=== PATIENT | female | born 1995 | race Two or more races ===

== ENCOUNTER 2023-03-18 12:46 | Emergency (ER) | payer OTHER ==
[~2023-03-18] VITALS: Ht 165.1 cm; Wt 104.3 kg
[2023-03-18] MEDS ORDERED: PEPCID AC10 MG PO (13:32)
[2023-03-18] MEDS ORDERED: PRENA1 TRUE CO1 EACH PO (13:32)
[2023-03-18] MEDS ORDERED: ZOFRAN8 MG PO ×2 (13:33→16:37)
[2023-03-18] MEDS ORDERED: PEPCID AC20 MG PO (16:37)
== END 2023-03-18 17:13 | disposition home or self-care (01) ==
LOC: ER 12:46
DX: Z34.90 Encounter for supervision of normal pregnancy, unspecified, unspecified trimester (principal); Z3A.20 20 weeks gestation of pregnancy; R10.9 Unspecified abdominal pain; R11.10 Vomiting, unspecified; Z91.013 Allergy to seafood

== ENCOUNTER 2023-04-12 10:19 | Outpatient (CLI) | payer OTHER ==
[~2023-04-12 10:19] MED LIST: PEPCID AC10 MG PO; PEPCID AC20 MG PO; PRENA1 TRUE CO1 EACH PO; ZOFRAN8 MG PO
== END 2023-04-12 10:58 | disposition home or self-care (01) ==
LOC: NST 10:19
PROVIDERS: ATTEND Obstetrics & Gynecology
DX: Z34.82 Encounter for supervision of other normal pregnancy, second trimester (principal)

== ENCOUNTER 2023-05-21 00:01 | Outpatient (CLI) | payer OTHER | END 2023-05-21 10:01 | disposition home or self-care (01) | LOC: OBS/DEL 00:01 | PROVIDERS: ATTEND Obstetrics & Gynecology | DX: O26.893 Other specified pregnancy related conditions, third trimester (principal); Z3A.29 29 weeks gestation of pregnancy; K59.09 Other constipation; Z91.013 Allergy to seafood ==

== ENCOUNTER 2023-07-03 11:44 | Outpatient (CLI) | payer OTHER | END 2023-07-03 12:20 | disposition home or self-care (01) | LOC: NST 11:44 | PROVIDERS: ATTEND Obstetrics & Gynecology | DX: Z34.83 Encounter for supervision of other normal pregnancy, third trimester (principal) ==

== ENCOUNTER 2023-07-12 10:56 | Inpatient (IN) | payer OTHER ==
[~2023-07-12] VITALS: Ht 165.1 cm; Wt 111.1 kg
[2023-07-31 10:24] LABS: HEMATOCRIT 36.3 % (36.0-45.00); HEMOGLOBIN 12.3 g/dL (12.0-15.00); MEAN CELL VOLUME 84.2 fL (80.00-100.00); MEAN CORPUSCULAR HEMOGLOBIN 28.6 pg (27.00-32.0); PLATELET COUNT 188 K/uL (150-450); RED BLOOD COUNT 4.32 M/uL (4.00-6.00)
[2023-07-31 10:27] LABS: RED CELL DISTRIBUTION WIDTH 17.1 % (11.5-14.5)
[2023-07-31] MEDS ORDERED: INTEGRA F CAPS1 EAC1 PO (10:30)
[2023-07-31 10:46] LABS: PH,URINE 6.5 (5.0-8.0); URINE APPEARANCE Clear; URINE BILIRRUBIN Negative (NEGATIVE); URINE BLOOD Small; URINE COLOR Yellow; URINE GLUCOSE Negative (NEGATIVE); URINE LEUKOCYTE Moderate; URINE NITRATE Negative; URINE UROBILINOGEN 0.2 E.U./dl
[2023-07-31 10:50] LABS: URINE RBC 10.3 uL (0.0-20.8); URINE WBC 115.7 uL (0.0-23.2)
[2023-07-31 11:22] LABS: ALBUMIN 2.9 gm/dL (3.4-5.0); BILIRUBIN TOTAL 0.28 mg/dL (0.3-1.2); CALCIUM 9.6 mg/dL (8.5-10.1); CREATININE SERUM 0.69 mg/dL (0.55-1.02); GFR 102.06; GLOBULINA 3.8 G/DL (2.4-3.5); POTASSIUM 4.69 mEq/L (3.5-5.1); TOTAL PROTEIN 6.7 gm/dL (6.4-8.2)
[2023-07-31 11:23] LABS: INR < 0.93; PARTIAL THROMBOPLASTIN TIME 25.8 SECONDS (22.0-34.0); PROTHROMBIN TIME 9.4 SECONDS (9.0-11.5)
[2023-07-31 13:22] LABS: URINE PROTEIN 100 (NEGATIVE)
[2023-07-31 23:31] LABS: HEMATOCRIT 30.2 % (36.0-45.00); HEMOGLOBIN 10.5 g/dL (12.0-15.00); MEAN CELL VOLUME 83.5 fL (80.00-100.00); MEAN CORPUSCULAR HEMOGLOBIN 29.1 pg (27.00-32.0); MEAN CORPUSCULAR HGB CONC 34.8 g/dl (32.0-36.0); PLATELET COUNT 176 K/uL (150-450); RED BLOOD COUNT 3.62 M/uL (4.00-6.00); RED CELL DISTRIBUTION WIDTH 16.9 % (11.5-14.5)
[2023-07-31 23:41] LABS: ALBUMIN 2.4 gm/dL (3.4-5.0); BILIRUBIN TOTAL 0.29 mg/dL (0.3-1.2); CREATININE SERUM 0.8 mg/dL (0.55-1.02); GFR 86.04; GLOBULINA 3.4 G/DL (2.4-3.5); POTASSIUM 3.81 mEq/L (3.5-5.1); TOTAL PROTEIN 5.8 gm/dL (6.4-8.2)
== END 2023-08-02 14:53 | disposition home or self-care (01) | DRG 807 ==
LOC: OB/GYN → LDR 07-31 07:09 → OB/GYN 07-31 20:46
PROVIDERS: Obstetrics & Gynecology; Obstetrics & Gynecology Gynecology; ADMIT Obstetrics & Gynecology; ATTEND Obstetrics & Gynecology
PROC: 10E0XZZ Delivery of Products of Conception, External Approach (ICD-10-PCS; principal; 2023-07-31)
PROC: 0KQM0ZZ Repair Perineum Muscle, Open Approach (ICD-10-PCS; 2023-07-31)
PROC: 4A1HXCZ Monitoring of Products of Conception, Cardiac Rate, External Approach (ICD-10-PCS; 2023-07-31)
DX: O70.1 Second degree perineal laceration during delivery (principal); Z37.0 Single live birth; Z3A.39 39 weeks gestation of pregnancy; Z20.822 Contact with and (suspected) exposure to COVID-19

== ENCOUNTER 2023-07-30 13:47 | Outpatient (CLI) | payer OTHER ==
[2023-07-31] MEDS ORDERED: INTEGRA F CAPS1 EAC1 PO (10:30)
== END 2023-07-30 13:58 | disposition home or self-care (01) ==
LOC: NST 13:47
PROVIDERS: ATTEND Obstetrics & Gynecology Maternal & Fetal Medicine
DX: Z34.83 Encounter for supervision of other normal pregnancy, third trimester (principal)

== ENCOUNTER 2024-07-14 09:06 | Outpatient (CLI) | payer OTHER ==
[~2024-07-14 09:06] MED LIST changes: +INTEGRA F CAPS1 EAC1 PO
== END 2024-07-14 10:12 | disposition home or self-care (01) ==
LOC: NST 09:06
PROVIDERS: ATTEND Obstetrics & Gynecology Maternal & Fetal Medicine
DX: Z34.83 Encounter for supervision of other normal pregnancy, third trimester (principal)

== ENCOUNTER 2024-08-27 13:25 | Outpatient (CLI) | payer OTHER | END 2024-08-27 13:46 | disposition home or self-care (01) | LOC: NST 13:25 | PROVIDERS: ATTEND Obstetrics & Gynecology Gynecology | DX: Z34.83 Encounter for supervision of other normal pregnancy, third trimester (principal) ==

== ENCOUNTER 2024-09-10 13:54 | Outpatient (CLI) | payer OTHER | END 2024-09-10 14:59 | disposition home or self-care (01) | LOC: NST 13:54 | PROVIDERS: ATTEND Obstetrics & Gynecology Maternal & Fetal Medicine | DX: Z34.83 Encounter for supervision of other normal pregnancy, third trimester (principal) ==

== ENCOUNTER 2024-09-11 11:17 | Inpatient (IN) | payer OTHER ==
[~2024-09-11] VITALS: Ht 165.1 cm; Wt 106.6 kg
[2024-09-16 07:57] VITALS: BP 135/69
[2024-09-16] MEDS ORDERED: OXYTOCIN 20 UNITS/500ML RL PIGGYBAG IV ONE (08:15)
[2024-09-16] MEDS ORDERED: LABETALOL HCL200 MG PO (08:23)
[2024-09-16] MEDS ORDERED: OXYTOCIN 500 ML IV SCH (08:30)
[2024-09-16] MEDS ORDERED: RINGERS SOLUTION,LACTATED 1,000 ML IV SCH (08:30)
[2024-09-16 08:56] LABS: HEMATOCRIT 32.5 % (36.0-45.00); HEMOGLOBIN 10.7 g/dL (12.0-15.00); MEAN CELL VOLUME 78.1 fL (80.00-100.00); MEAN CORPUSCULAR HEMOGLOBIN 25.7 pg (27.00-32.0); MEAN CORPUSCULAR HGB CONC 32.9 g/dl (32.0-36.0); PLATELET COUNT 205 K/uL (150-450); RED BLOOD COUNT 4.16 M/uL (4.00-6.00); RED CELL DISTRIBUTION WIDTH 15.3 % (11.5-14.5)
[2024-09-16 08:57] LABS: URINE APPEARANCE Clear; URINE BILIRRUBIN Negative (NEGATIVE); URINE BLOOD Negative; URINE COLOR Yellow; URINE GLUCOSE Negative (NEGATIVE); URINE KETONE Negative (NEGATIVE); URINE LEUKOCYTE Moderate; URINE NITRATE Negative; URINE PROTEIN Negative (NEGATIVE); URINE UROBILINOGEN 0.2 E.U./dl
[2024-09-16 09:01] LABS: URINE BACTERIA 813.9 uL (0.0-1933); URINE EPITHELIAL CELLS 44.3 uL (0.0-38.8); URINE RBC 4.5 uL (0.0-20.8); URINE WBC 62.3 uL (0.0-23.2)
[2024-09-16 09:04] LABS: URINE CAST 0.14 uL (0.0-1.40)
[2024-09-16 09:27] LABS: INR < 0.93; PARTIAL THROMBOPLASTIN TIME 24.5 SECONDS (22.0-34.0); PROTHROMBIN TIME 9.9 SECONDS (9.0-11.5)
[2024-09-16 09:47] LABS: ALBUMIN 2.7 gm/dL (3.4-5.0); BILIRUBIN TOTAL 0.31 mg/dL (0.3-1.2); CALCIUM 9.3 mg/dL (8.5-10.1); CREATININE SERUM 0.5 mg/dL (0.55-1.02); GFR 146.91; GLOBULINA 4.2 G/DL (2.4-3.5); POTASSIUM 4.07 mEq/L (3.5-5.1); TOTAL PROTEIN 6.9 gm/dL (6.4-8.2)
[2024-09-16] MEDS ORDERED: ERYTHROMYCIN BASE OPHT 1GM EACH TUBE OP ONE ×2 (11:32→14:15)
[2024-09-16] MEDS ORDERED: OXYTOCIN 20 UNITS/1000ML RL PIGGYBAG IV ONE (11:32)
[2024-09-16] MEDS ORDERED: CHLORHEXIDINE GLUCONATE 120 ML BOTTLE TOP ONE (11:32)
[2024-09-16] MEDS ORDERED: LIDOCAINE HCL 1% 10ML VIAL ONE (11:33)
[2024-09-16 11:45] VITALS: BP 145/88
[2024-09-16] MEDS ORDERED: MORPHINE SULFATE 4 MG/ML VIAL IV ONE (11:45)
[2024-09-16 13:48] VITALS: BP 155/79
[2024-09-16] MEDS ORDERED: CHLORHEXIDINE GLUCONATE 120 ML BOTTLE TOP SCH (14:00)
[2024-09-16] MEDS ORDERED: IBUprofen 400 MG TABLET PO PRN (14:00)
[2024-09-16] MEDS ORDERED: OXYTOCIN 1,000 ML IV ONE (14:00)
[2024-09-16 16:00] VITALS: BP 129/90
[2024-09-16 16:38] VITALS: BP 150/80
[2024-09-16] MEDS ORDERED: LABETALOL HCL 200 MG TABLET PO SCH ×2 (17:00→21:00)
[2024-09-16] MEDS ORDERED: DOCUSATE CALCIUM 240 MG CAPSULE PO SCH (21:00)
[2024-09-17] VITALS: BP 127/80
[2024-09-17 07:02] LABS: HEMATOCRIT 29.4 % (36.0-45.00); MEAN CELL VOLUME 78.2 fL (80.00-100.00); MEAN CORPUSCULAR HGB CONC 33.2 g/dl (32.0-36.0); PLATELET COUNT 168 K/uL (150-450); RED BLOOD COUNT 3.75 M/uL (4.00-6.00); RED CELL DISTRIBUTION WIDTH 15.4 % (11.5-14.5)
[2024-09-17 07:08] LABS: HEMOGLOBIN 9.7 g/dL (12.0-15.00); MEAN CORPUSCULAR HEMOGLOBIN 25.8 pg (27.00-32.0)
[2024-09-17 08:48] VITALS: BP 140/79
[2024-09-17] MEDS ORDERED: PNV,CALCIUM 72/IRON/FOLIC ACID 1 TAB TABLET PO SCH (09:00)
[2024-09-17] MEDS ORDERED: IRON FUM,PS/FOLIC/BCOMP,C NO.9 1 CAP CAPSULE PO SCH (09:00)
[2024-09-17 17:09] VITALS: BP 140/79
[2024-09-18 01:06] VITALS: BP 135/74
[2024-09-18 08:00] VITALS: BP 135/81
== END 2024-09-18 10:51 | disposition home or self-care (01) | DRG 807 ==
LOC: LDR 09-16 06:22 → OB/GYN 09-16 11:15
PROVIDERS: Obstetrics & Gynecology Gynecology; ADMIT Obstetrics & Gynecology; ATTEND Obstetrics & Gynecology
PROC: 10E0XZZ Delivery of Products of Conception, External Approach (ICD-10-PCS; principal; 2024-09-16)
PROC: 4A1HXCZ Monitoring of Products of Conception, Cardiac Rate, External Approach (ICD-10-PCS; 2024-09-16)
DX: O80 Encounter for full-term uncomplicated delivery (principal); Z37.0 Single live birth; Z3A.38 38 weeks gestation of pregnancy